=== PATIENT | female | born 2000 | race African-American/Black ===

== ENCOUNTER 2019-01-17 20:57 | Emergency (ER) | payer MEDICAID ==
[2019-01-17 21:48] LABS: APPEARANCE,URINE SLIGHTLY-CLOUDY; BILIRUBIN,URINE NEGATIVE (NEGATIVE); COLOR,URINE YELLOW; GLUCOSE, URINE NEGATIVE (NEGATIVE); KETONES,URINE NEGATIVE (NEGATIVE); LEUKOCYTE ESTERASE,URINE NEGATIVE (NEGATIVE); NITRITE,URINE NEGATIVE (NEGATIVE); PROTEIN,URINE NEGATIVE (NEGATIVE); URINE SPECIFIC GRAVITY 1.021; UROBILINOGEN,URINE NEGATIVE mg/dL (<2.0)
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
[2019-01-18 00:50] VITALS: BP 113/56
== END 2019-01-18 00:50 | disposition home or self-care (01) ==
LOC: ER 20:57
DX: O26.891 Other specified pregnancy related conditions, first trimester (principal); R10.2 Pelvic and perineal pain; Z3A.13 13 weeks gestation of pregnancy
CPT/HCPCS: 81001; 99284

== ENCOUNTER 2019-01-19 13:52 | Emergency (ER) | payer MEDICAID ==
[2019-01-19 14:22] VITALS: BP 114/66
--- NOTE | 2019-01-19 15:18 | ER Document Report ---
ED General - General Chief Complaint: Skin Problem Stated Complaint: POSSIBLE ALLERGIC REACTION Time Seen by Provider: 01/19/19 15:09 Mode of Arrival: Ambulatory Information source: Patient TRAVEL OUTSIDE OF THE [place] IN LAST 30 DAYS: No - HPI Patient complains to provider of: Itchiness to face and itchiness in her nose Onset: Other - Past couple weeks Onset/Duration: Persistent Quality of pain: No pain Severity: None Associated symptoms: None Exacerbated by: Denies Relieved by: Denies Similar symptoms previously: No Recently seen / treated by doctor: No Notes: 19-year-old -[place] female who is coming in today with slight rash that developed on her face for the past couple weeks and itchiness and also an itchy nose. No fevers or chills. No abdominal pain. No vaginal bleeding. No nausea vomiting or diarrhea. - Related Data Allergies/Adverse Reactions: No Known Allergies Allergy (Unverified 01/19/19 13:56) Past Medical History - General Information source: Patient - Social History Smoking Status: Never Smoker Family History: Reviewed & Not Pertinent Renal/ Medical History: Denies: Hx Peritoneal Dialysis Review of Systems - Review of Systems Notes: Constitutional: No fevers. No chills. EENT: No eye redness. No eye pain. No ear pain. No sore throat. Cardiovascular: No chest pain. No palpitations. Respiratory: No cough. No shortness of breath. No respiratory distress. Gastrointestinal: No abdominal pain. No nausea, vomiting, or diarrhea. Genitourinary: Atraumatic. No lesions. No pain. No discharge. Musculoskeletal: Atraumatic. No swelling. No deformities. Skin: Positive rash to face Lymphatic: No swollen lymph nodes. Neurologic: No headache. No syncope. Psychiatric: No suicidal or homicidal ideation. Physical Exam - Vital signs Vitals: Temp Pulse Resp BP Pulse Ox 98.4 F 74 16 114/66 100 01/19/19 14:21 01/19/19 14:21 01/19/19 14:21 01/19/19 14:21 01/19/19 14:21 - Notes Notes: General: Well-developed, well-nourished. In no acute distress. Non-toxic appearing. Cardiac: Well-perfused. Regular rate and rhythm. No murmurs, rubs, or gallops. Pulmonary: No respiratory distress. No cyanosis. Bilateral lung fiels are clear to auscultation. Abdominal: Non-distended. Non-rigid. Bowels sounds are present in all four quadrants. No guarding or rebound. HEENT: Head is atraumatic. Conjunctivae not reddened. No tearing. PERRL. EOMI. Orbits atraumatic. No periorbital swelling or erythema. Oropharynx is without erythema, swelling, or exudates. Neck: Supple. No adenopathy. No meningismus. Dermatologic: Fine macular rash to face. No erythema. No pustules. No petechiae or purpura Chest: Atraumatic. No chest wall tenderness to palpation. Musculoskeletal: Moves all extremities well. No range of motion deficits. no muscular or joint tenderness. No paraspinal muscle tenderness. no midline spinal tenderness or step-off. Genitourinary: Examination deferred Neurologic: No gross neurologic deficits. Psychiatric: Normal mood. Course - Vital Signs Vital signs: Temp Pulse Resp BP Pulse Ox 98.4 F 74 16 114/66 100 01/19/19 14:21 01/19/19 14:21 01/19/19 14:21 01/19/19 14:21 01/19/19 14:21 Discharge - Discharge Clinical Impression: Facial dermatitis Condition: Good Disposition: HOME, SELF-CARE Instructions: Acute Allergic Reaction ([facility]) Additional Instructions: Use medication prescribed daily. Follow-up with your obstetric doctor if the symptoms persist Prescriptions: Loratadine 10 mg PO DAILY #14 capsule Referrals: KRISTOFER WOLF DO [ACTIVE STAFF] - Follow up as needed
== END 2019-01-19 15:21 | disposition home or self-care (01) ==
LOC: ER 13:52
DX: O99.719 Diseases of the skin and subcutaneous tissue complicating pregnancy, unspecified trimester (principal); L30.9 Dermatitis, unspecified; Z3A.00 Weeks of gestation of pregnancy not specified
CPT/HCPCS: 99282

== ENCOUNTER 2019-02-19 17:45 | Emergency (ER) | payer MEDICAID ==
[2019-02-19] MEDS ORDERED: ACETAMINOPHEN 325 MG TABLET PO ONE (18:03)
--- NOTE | 2019-02-19 18:05 | ER Document Report ---
ED Medical Screen (RME) - General Chief Complaint: OB Problem (<20wks) Stated Complaint: CRAMPING Time Seen by Provider: 02/19/19 18:02 Mode of Arrival: Ambulatory Information source: Patient Notes: 19-year-old female presented to ED for pelvic and abdominal cramping and is 17 weeks . She states she also has some clear vaginal discharge. She states she is a patient of women's health care. She is 3 para 2. Patient is alert oriented respirations regular and unlabored speaking in full sentences. I have greeted and performed a rapid initial assessment of this patient. A comprehensive ED assessment and evaluation of the patient, analysis of test results and completion of medical decision making process will be conducted by an additional ED providers. Dictation of this chart was performed using voice recognition software; therefore, there may be some unintended grammatical errors. TRAVEL OUTSIDE OF THE [place] IN LAST 30 DAYS: No - Related Data Allergies/Adverse Reactions: METALLIC Allergy (Uncoded 02/19/19 17:46) Past Medical History - Social History Frequency of alcohol use: None Drug Abuse: None Renal/ Medical History: Denies: Hx Peritoneal Dialysis Physical Exam - Vital signs Vitals: Temp Pulse Resp BP Pulse Ox 98.3 F 78 16 126/61 H 99 02/19/19 17:50 02/19/19 17:50 02/19/19 17:50 02/19/19 17:50 02/19/19 17:50 Course - Vital Signs Vital signs: Temp Pulse Resp BP Pulse Ox 98.3 F 78 16 126/61 H 99 02/19/19 17:50 02/19/19 17:50 02/19/19 17:50 02/19/19 17:50 02/19/19 17:50
--- NOTE | 2019-02-19 18:37 | ER Document Report ---
ED General - General Chief Complaint: OB Problem (<20wks) Stated Complaint: CRAMPING Time Seen by Provider: 02/19/19 18:02 Primary Care Provider: JANNA KUMAR MD [Primary Care Provider] - Follow up as needed Mode of Arrival: Ambulatory Information source: Patient TRAVEL OUTSIDE OF THE [place] IN LAST 30 DAYS: No - HPI Patient complains to provider of: Low abdominal cramping with nausea and vomiting Onset: Other - Last night Onset/Duration: Sudden Quality of pain: Sharp Severity: Severe Pain Level: 4 Associated symptoms: Nausea, Vomiting. denies: Chills, Diarrhea, Fever Exacerbated by: Denies Relieved by: Denies Similar symptoms previously: No Recently seen / treated by doctor: No Notes: Patient is a graft 3 para [id number] -[place] female presenting with 17 weeks gestation by dates with sharp low abdominal pelvic cramping and emesis that started suddenly last night. Vomiting has subsided but she continues to have low abdominal pelvic cramping. She is not having any vaginal bleeding. Complaining of a clear vaginal discharge - Related Data Allergies/Adverse Reactions: METALLIC Allergy (Uncoded 02/19/19 17:46) Past Medical History - General Information source: Patient - Social History Smoking Status: Never Smoker Frequency of alcohol use: None Drug Abuse: None Family History: Reviewed & Not Pertinent Patient has suicidal ideation: No Patient has homicidal ideation: No Renal/ Medical History: Denies: Hx Peritoneal Dialysis Review of Systems - Review of Systems Notes: Constitutional: No fevers. No chills. EENT: No eye redness. No eye pain. No ear pain. No sore throat. Cardiovascular: No chest pain. No palpitations. Respiratory: No cough. No shortness of breath. No respiratory distress. Gastrointestinal: No abdominal pain. No nausea, vomiting, or diarrhea. Genitourinary: Positive for pelvic cramping, positive for vaginal discharge negative for vaginal bleeding Musculoskeletal: Atraumatic. No swelling. No deformities. Skin: No rash or lesions. Lymphatic: No swollen lymph nodes. Neurologic: No headache. No syncope. Psychiatric: No suicidal or homicidal ideation. Physical Exam - Vital signs Vitals: Temp Pulse Resp BP Pulse Ox 98.3 F 78 16 126/61 H 99 02/19/19 17:50 02/19/19 17:50 02/19/19 17:50 02/19/19 17:50 02/19/19 17:50 - Notes Notes: General: Well-developed, well-nourished. In no acute distress. Non-toxic appearing. Cardiac: Well-perfused. Regular rate and rhythm. No murmurs, rubs, or gallops. Pulmonary: No respiratory distress. No cyanosis. Bilateral lung fiels are clear to auscultation. Abdominal: Non-distended. Non-rigid. Bowels sounds are present in all four quadrants. No guarding or rebound. HEENT: Head is atraumatic. Conjunctivae not reddened. No tearing. PERRL. EOMI. Orbits atraumatic. No periorbital swelling or erythema. Oropharynx is without erythema, swelling, or exudates. Neck: Supple. No adenopathy. No meningismus. Dermatologic: Warm with good turgor. No rash. Atraumatic. Chest: Atraumatic. No chest wall tenderness to palpation. Musculoskeletal: Moves all extremities well. No range of motion deficits. no muscular or joint tenderness. No paraspinal muscle tenderness. no midline spinal tenderness or step-off. Genitourinary: Chaperoned by Radha CHAPA. External genitalia normal. Speculum exam reveals small amount of opaque vaginal discharge. Cervix closed. No bleeding. No purulent drainage. No cervical motion tenderness. Neurologic: No gross neurologic deficits. Psychiatric: Normal mood. Course - Re-evaluation Re-evalutation: 02/19/19 20:22 Labs reassuring. Ultrasound consistent with second trimester with good heart tones. Wet mount negative. GC chlamydia cultures sent. Will treat if positive. - Vital Signs Vital signs: Temp Pulse Resp BP Pulse Ox 98.3 F 78 16 126/61 H 99 02/19/19 17:50 02/19/19 17:50 02/19/19 17:50 02/19/19 17:50 02/19/19 17:50 - Laboratory Result Diagrams: 02/19/19 18:53 02/19/19 18:53 Laboratory results interpreted by me: 02/19/19 02/19/19 18:53 18:53 Hgb 11.5 L Hct 33.9 L Sodium 136.7 L Glucose 65 L Total Protein 6.1 L Discharge - Discharge Clinical Impression: Pelvic pain affecting Qualifiers: Trimester: second trimester Qualified Code(s): O26.892 - Other specified related conditions, second trimester; R10.2 - Pelvic and perineal pain Condition: Good Disposition: HOME, SELF-CARE Instructions: Pelvic Pain in ([facility]), Pelvic Pain in and Round Ligament Pain ([facility]) Additional Instructions: Drink lots of water to make sure that she do not have any uterine irritation. Tylenol as needed for pain. Follow-up with OB group. Referrals: JANNA KUMAR MD [Primary Care Provider] - Follow up as needed YOLANDA KUMAR MD [ACTIVE STAFF] - Follow up as needed
--- NOTE | 2019-02-19 18:39 | RADIOLOGY REPORT (SQ) ---
EXAM DESCRIPTION: U/S OB LIMITED COMPLETED DATE/TIME: 02/19/2019 6:30 pm REASON FOR STUDY: pelvic cramping discharge 18 weeks 5 days gestation by dates COMPARISON: None. TECHNIQUE: Limited transabdominal grayscale ultrasound for evaluation of specific requested obstetri vernon parameters. LIMITATIONS: None. FINDINGS: CERVICAL LENGTH: 2.9 cm. Closed. L BIOMEDICAL REPAIR TECHNICIAN 3.5 cm: FHR: 147 beats per minute. PRESENTATION: Cephalic. PLACENTA: Posterior. ANATOMY: Not assessed OTHER: Gestational age by ultrasound 17 weeks 6 days. IMPRESSION: LIMITED OBSTETRICAL ULTRASOUND WITH MEASURED PARAMETERS DELINEATED ABOVE. Trimester of : Second trimester - 13 weeks 1 day to 27 weeks 6 days. TECHNICAL DOCUMENTATION: JOB ID: [id number] [employer]- All Rights Reserved Reading location - IP/workstation name: [email or web address]
[2019-02-19 19:23] LABS: APPEARANCE,URINE CLOUDY; BILIRUBIN,URINE NEGATIVE (NEGATIVE); COLOR,URINE YELLOW; GLUCOSE, URINE NEGATIVE (NEGATIVE); KETONES,URINE NEGATIVE (NEGATIVE); LEUKOCYTE ESTERASE,URINE NEGATIVE (NEGATIVE); NITRITE,URINE NEGATIVE (NEGATIVE); PROTEIN,URINE NEGATIVE (NEGATIVE); URINE SPECIFIC GRAVITY 1.016; UROBILINOGEN,URINE NEGATIVE mg/dL (<2.0)
[2019-02-19] MEDS ORDERED: OXYCODONE-ACETAMINOPHEN 5-325 MG TABLET PO ONE (19:23)
[2019-02-19 19:26] LABS: ABSOLUTE EOSINOPHILS # (AUTO) 0.1 10^3/uL (0.0-0.6); ABSOLUTE LYMPHOCYTES (AUTO) 1.8 10^3/uL (0.5-4.7); ABSOLUTE MONOCYTES (AUTO) 0.6 10^3/uL (0.1-1.4); BASOPHILS % (AUTO) 0.4 % (0-2); EOSINOPHILS % (AUTO) 1.2 % (0-6); HEMATOCRIT 33.9 % (36.0-47.0); HEMOGLOBIN 11.5 g/dL (12.0-15.5); LYMPHOCYTES % (AUTO) 24.1 % (13-45); MEAN CORPUSCULAR HEMOGLOBIN 30.6 pg (27.0-33.4); MEAN CORPUSCULAR VOLUME 90 fl (80-97); PLATELET COUNT 198 10^3/uL (150-450); RED BLOOD COUNT 3.77 10^6/uL (3.72-5.28); RED CELL DISTRIBUTION WIDTH 13.8 % (11.5-14.0); SEGMENTED NEUTROPHILS % (AUTO) 66.3 % (42-78); TOTAL CELLS COUNTED % (AUTO) 100 %; WHITE BLOOD COUNT 7.6 10^3/uL (4.0-10.5)
[2019-02-19 19:44] LABS: ALANINE AMINOTRANSFERASE 30 U/L (9-52); ALBUMIN 3.5 g/dL (3.5-5.0); ALKALINE PHOSPHATASE 61 U/L (38-126); ANION GAP 9 (5-19); ASPARTATE AMINO TRANSFERASE 27 U/L (14-36); BILIRUBIN,DIRECT 0.2 mg/dL (0.0-0.4); BILIRUBIN,TOTAL 0.2 mg/dL (0.2-1.3); BLOOD UREA NITROGEN 9 mg/dL (7-20); CALCIUM 9.8 mg/dL (8.4-10.2); CARBON DIOXIDE 26 mmol/L (22-30); CHLORIDE 102 mmol/L (98-107); SODIUM 136.7 mmol/L (137-145); TOTAL PROTEIN 6.1 g/dL (6.3-8.2)
[2019-02-19 19:47] LABS: GLUCOSE 65 mg/dL (75-110)
[2019-02-19 20:00] LABS: T.VAGINALIS (WET MOUNT) NO TRICHOMONAS SEEN; WBCS (WET MOUNT) RARE WBCS SEEN; YEAST (WET MOUNT) NO YEAST SEEN
[2019-02-19 20:01] LABS: EPITHELIALS (WET MOUNT) 3+ EPITHELIALS SEEN
[2019-02-19 20:32] VITALS: BP 111/65
[2019-02-19 21:13] LABS: CHLAM PCR NOT DETECTED (NOT DETECT); GON PCR NOT DETECTED (NOT DETECT)
== END 2019-02-19 20:33 | disposition home or self-care (01) ==
LOC: ER 17:45
DX: O26.892 Other specified pregnancy related conditions, second trimester (principal); R10.2 Pelvic and perineal pain; O21.9 Vomiting of pregnancy, unspecified; Z3A.17 17 weeks gestation of pregnancy
CPT/HCPCS: 99282; 36415; 87210; 85025; 80053; 81001; 87491; 87591; 76815; J3490

== ENCOUNTER 2019-02-25 12:45 | Emergency (ER) | payer MEDICAID ==
[2019-02-25] MEDS ORDERED: BUTALB/ACETAMINOPHEN/CAFFEINE 1 TAB EACH PO ONE (14:25)
--- NOTE | 2019-02-25 15:45 | ER Document Report ---
HPI - HPI Time Seen by Provider: 02/25/19 13:29 Pain Level: 3 Notes: Patient is an otherwise healthy 19-year-old female presenting at 18 weeks gestation with complaints of sore throat, congestion and nausea and vomiting. Patient denies any fevers. States that it feels like she has strep throat. - CONSTITUTIONAL Constitutional: DENIES: Fever, Chills - EENT EENT: REPORTS: Sore Throat - NEURO Neurology: REPORTS: Headache - REPRODUCTIVE Reproductive: REPORTS: : Past Medical History - General Information source: Patient - Social History Smoking Status: Never Smoker Chew tobacco use (# tins/day): No Frequency of alcohol use: None Drug Abuse: None Family History: Reviewed & Not Pertinent Patient has suicidal ideation: No Patient has homicidal ideation: No - Medical History Medical History: Negative Renal/ Medical History: Denies: Hx Peritoneal Dialysis Surgical Hx: Negative Vertical Provider Document - CONSTITUTIONAL Notes: PHYSICAL EXAMINATION: GENERAL: Well-appearing, well-nourished and in no acute distress. HEAD: Atraumatic, normocephalic. EYES: Pupils equal round extraocular movements intact, conjunctiva are normal. ENT: Nares patent, tonsils mildly erythematous but without swelling or exudates. Uvula midline. NECK: Normal range of motion, cervical lymphadenopathy noted. LUNGS: No respiratory distress, lung sounds clear and equal bilaterally. Musculoskeletal: Normal range of motion NEUROLOGICAL: Normal speech, normal gait. PSYCH: Normal mood, normal affect. SKIN: Warm, Dry, normal turgor, no rashes or lesions noted. - INFECTION CONTROL TRAVEL OUTSIDE OF THE [place] IN LAST 30 DAYS: No Course - Re-evaluation Re-evalutation: Rapid strep is negative. Throat culture pending. Patient will be treated symptomatically - Vital Signs Vital signs: Temp Pulse Resp BP Pulse Ox 98.3 F 76 16 109/50 L 98 02/25/19 12:48 02/25/19 12:48 02/25/19 12:48 02/25/19 12:48 02/25/19 12:48 Discharge - Discharge Clinical Impression: Sore throat Nausea and vomiting Qualifiers: Vomiting type: unspecified Vomiting Intractability: unspecified Qualified Code(s): R11.2 - Nausea with vomiting, unspecified Condition: Stable Disposition: HOME, SELF-CARE Additional Instructions: The rapid strep was negative today. A throat culture is pending. If this is abnormal someone will call you in the next 24 to 48 hours. Your symptoms are most likely due to a viral infection it should resolve over the next 7-14 days. Please take [id number] Benadryl for your congestion. You may also use tylenol as needed for aches and thorat discomfort. Please be sure to drink plenty of fluids and get rest. Return to the emergency department he began having difficulty breathing, chest pain, persistent vomiting, or any other symptoms that are concerning to you. Prescriptions: Metoclopramide HCl [Reglan 10 mg Tablet] 1 - 2 tab PO ASDIR PRN #25 tablet PRN Reason: Forms: Return to Work
[2019-02-25 15:52] VITALS: BP 98/53
== END 2019-02-25 15:52 | disposition home or self-care (01) ==
LOC: ER 12:45
DX: O26.892 Other specified pregnancy related conditions, second trimester (principal); O21.9 Vomiting of pregnancy, unspecified; J02.9 Acute pharyngitis, unspecified; R09.81 Nasal congestion; Z3A.18 18 weeks gestation of pregnancy
CPT/HCPCS: 99283; 87070; 87880; J3490